=== PATIENT | male | born 1995 | race Caucasian/White ===

== ENCOUNTER 2020-04-04 01:06 | Emergency (ER) | payer OTHER ==
[~2020-04-04] VITALS: Ht 190.5 cm; Wt 68.0 kg
--- NOTE | 2020-04-04 01:18 | NUR ---
CT CALLED FOR STAT CT PER DR MCDONALD
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
--- NOTE | 2020-04-04 01:20 | NUR ---
PT TO CT
--- NOTE | 2020-04-04 01:25 | NUR ---
JOHN AT BEDSIDE FOR REPORT AT THIS TIME
--- NOTE | 2020-04-04 01:26 | NUR ---
PT BACK FROM CT
[2020-04-04] MEDS ORDERED: SODIUM CHLORIDE 0.9% 1,000ML IVBOLUS ONE (01:30)
[2020-04-04] MEDS ORDERED: ONDANSETRON 2MG/ML, 2ML IVPush ONE (01:30)
[2020-04-04] MEDS ORDERED: PLEASE ENTER ALLERGIES MC SCH (01:30)
[2020-04-04] MEDS ORDERED: SODIUM CHLORIDE FLUSH 10ML SYR IVF ONE (01:30)
[2020-04-04] MEDS ORDERED: FLUORESCEIN OPHTHALMIC 1 MG STRIP EACHEYE ONE (02:30)
[2020-04-04] MEDS ORDERED: PROPARACAINE OPHTH 0.5%, 15ML EACHEYE ONE (02:30)
[2020-04-04] MEDS ORDERED: FLUORESCEIN OPHTHALMIC 1 MG STRIP ONE (02:56)
[2020-04-04] MEDS ORDERED: PROPARACAINE OPHTH 0.5%, 15ML ONE (02:57)
--- NOTE | 2020-04-04 03:02 | NUR ---
pt moved to room 43 at this time for eye exam. Very pleasant young man
[2020-04-04] MEDS ORDERED: NEOSPORIN OINT. PKT 1 PACKET ONE (03:18)
--- NOTE | 2020-04-04 03:25 | NUR ---
PT NOW BACK FROM EYE EXAM
[2020-04-04 03:31] VITALS: BP 139/89
--- NOTE | 2020-04-04 03:51 | NUR ---
Patient/Caregiver given discharge instructions and they have confirmed that they understand the instructions. Patient ambulatory with steady gait.
== END 2020-04-04 03:58 | disposition home or self-care (01) ==
LOC: ED 02:11
DX: S06.0X0A Concussion without loss of consciousness, initial encounter (principal); S02.2XXA Fracture of nasal bones, initial encounter for closed fracture; S01.112A Laceration without foreign body of left eyelid and periocular area, initial encounter; S40.211A Abrasion of right shoulder, initial encounter; S80.812A Abrasion, left lower leg, initial encounter; G89.11 Acute pain due to trauma; R00.0 Tachycardia, unspecified; Y04.0XXA Assault by unarmed brawl or fight, initial encounter; Y93.89 Activity, other specified; Y92.098 Other place in other non-institutional residence as the place of occurrence of the external cause; Y99.8 Other external cause status
CPT/HCPCS: 70450; 70486; 72125; 93005; 99285